=== PATIENT | female | born 1970 | race Caucasian/White ===

== ENCOUNTER → 2018-04-01 | Outpatient (CLI) | payer BC ==
[2018-04-01 19:04] LABS: BASO # 0.1 10^3/uL (0.0-0.2); BASO % 1.1 % (0.0-1.0); EOS # 0.6 10^3/uL (0.0-0.50); EOS % 5.2 % (0.0-3.0); HEMATOCRIT 45.9 % (36.0-47.0); HEMOGLOBIN 15.3 g/dl (12.0-15.5); IMMATURE GRANULOCYTE % 0.5 % (0-3.0); LYMPH # 2.4 10^3/uL (1.5-4.5); LYMPH % 20.6 % (24.0-44.0); MEAN CORPUSCULAR HEMOGLOBIN 30.8 pg (27.0-33.0); MEAN CORPUSCULAR HGB CONC 33.3 g/dl (32.0-36.5); MEAN CORPUSCULAR VOLUME 92.4 fl (80.0-96.0); MONO % 8.8 % (0.0-5.0); NEUTROPHILS # 7.3 10^3/uL (1.8-7.7); NEUTROPHILS % 63.8 % (36.0-66.0); PLATELET COUNT, AUTOMATED 257 10^3/uL (150-450); RED BLOOD COUNT 4.97 10^6/uL (4.00-5.40); RED CELL DISTRIBUTION WIDTH 14.1 % (11.5-14.5); WHITE BLOOD COUNT 11.5 10^3/uL (4.0-10.0)
[2018-04-01 19:33] LABS: ALBUMIN 3.6 GM/DL (3.2-5.2); ALBUMIN/GLOBULIN RATIO 1.03 (1.00-1.93); ALKALINE PHOSPHATASE 126 U/L (45-117); ALT/SGPT 17 U/L (12-78); ANION GAP 6 MEQ/L (8-16); AST/SGOT 13 U/L (7-37); BILIRUBIN,TOTAL 0.4 MG/DL (0.2-1.0); BLOOD UREA NITROGEN 9 MG/DL (7-18); CALCIUM LEVEL 8.4 MG/DL (8.5-10.1); CARBON DIOXIDE LEVEL 28 MEQ/L (21-32); CHLORIDE LEVEL 105 MEQ/L (98-107); CREATININE FOR GFR 0.92 MG/DL (0.55-1.30); FREE T4 0.96 NG/DL (0.76-1.46); GLOMERULAR FILTRATION RATE > 60.0 (>58); GLUCOSE, FASTING 84 MG/DL (70-100); POTASSIUM SERUM 4.3 MEQ/L (3.5-5.1); SODIUM LEVEL 139 MEQ/L (136-145); TOTAL PROTEIN 7.1 GM/DL (6.4-8.2)
== END ==
LOC: M WUC 09:54
DX: H53.8 Other visual disturbances (principal)
CPT/HCPCS: 84443

== ENCOUNTER → 2018-04-13 | Outpatient (CLI) | payer BC ==
[~2018-04-13] MED LIST: PROHANCE 279.3MG/ML 5ML VIAL (A9576) As Ordered
== END ==
LOC: M RAD 06:27
DX: H53.2 Diplopia (principal)
CPT/HCPCS: A9576

== ENCOUNTER 2019-08-31 18:40 | Emergency (ER) | payer BC, OTHER ==
[~2019-08-31] VITALS: Ht 157.5 cm; Wt 55.5 kg
[2019-08-31 19:30] LABS: BASO # 0.1 10^3/uL (0.0-0.2); BASO % 0.8 % (0.0-1.0); EOS # 0.4 10^3/uL (0.0-0.5); EOS % 2.3 % (0.0-3.0); HEMATOCRIT 45.5 % (36.0-47.0); LYMPH % 25.5 % (24.0-44.0); MEAN CORPUSCULAR HEMOGLOBIN 29.2 pg (27.0-33.0); MEAN CORPUSCULAR VOLUME 88.7 fl (80.0-96.0); MONO # 1.4 10^3/uL (0.0-0.8); NEUTROPHILS # 9.6 10^3/uL (1.5-8.5); PLATELET COUNT, AUTOMATED 299 10^3/uL (150-450); RED BLOOD COUNT 5.13 10^6/uL (4.00-5.40); WHITE BLOOD COUNT 15.5 10^3/uL (4.0-10.0)
[2019-08-31] MEDS ORDERED: ONDANSETRON 4MG/2ML VIAL (J2405) IV ONE (19:30)
[2019-08-31] MEDS ORDERED: ISOVUE-370 76% 100ML VIAL (Q9967) As Ordered ONE (19:33)
[2019-08-31 19:58] LABS: ALBUMIN 3.6 GM/DL (3.2-5.2); BILIRUBIN,DIRECT 0.1 MG/DL (0.0-0.2); BILIRUBIN,TOTAL 0.4 MG/DL (0.2-1.0); TOTAL PROTEIN 7.7 GM/DL (6.4-8.2)
--- NOTE | 2019-08-31 20:02 | REPVR ---
PROCEDURE INFORMATION: Exam: CT Abdomen And Pelvis With Contrast Exam date and time: 08/31/2019 7:34 PM Clinical history: 49 years old, female; Abdominal pain; Generalized; Additional info: Abd pain/diarrhea TECHNIQUE: Imaging protocol: Computed tomography of the abdomen and pelvis with intravenous contrast. Radiation optimization: All CT scans at this facility use at least one of these dose optimization techniques: automated exposure control; mA and/or kV adjustment per patient size (includes targeted exams where dose is matched to clinical indication); or iterative reconstruction. Contrast material: ISOVUE 370; Contrast volume: 100 ml; Contrast route: IV; COMPARISON: No relevant prior studies available. FINDINGS: Liver: There is a diffuse decrease in hepatic parenchymal density, consistent with fatty infiltration. Gallbladder and bile ducts: Normal. No calcified stones. No ductal dilation. Pancreas: Normal. No ductal dilation. Spleen: Normal. No splenomegaly. Adrenals: Normal. No mass. Kidneys and ureters: Left renal cyst measures 1.4 cm. Punctate nonobstructive calculus left kidney demonstrated. Stomach and bowel: Boggy appearance of the gastric antrum indicating presence of gastritis. Appendix: Status post appendectomy. Intraperitoneal space: Unremarkable. No free air. No significant fluid collection. Vasculature: Unremarkable. No abdominal aortic aneurysm. Lymph nodes: Unremarkable. No enlarged lymph nodes. Bladder: Unremarkable as visualized. Reproductive: Unremarkable as visualized. Bones/joints: Mild central spinal stenosis at L4-5. Soft tissues: Unremarkable. IMPRESSION: 1. There is a diffuse decrease in hepatic parenchymal density, consistent with fatty infiltration. 2. Boggy appearance of the gastric antrum indicating presence of gastritis. 3. Small nonobstructive calculus left kidney. Small left renal cyst. 4. No significant fluid accumulation demonstrated in the colon. Electronically signed by: Narciso Ley On 08/31/2019 20:01:59 PM
[2019-08-31] MEDS ORDERED: PANTOPRAZOLE 40MG INJ (PROTONIX) (C9113) IV ONE (20:15)
[2019-08-31] MEDS ORDERED: PANT40TA3 PO (21:31)
[2019-08-31] MEDS ORDERED: CARA1TAB6 PO (21:31)
[2019-08-31 21:37] VITALS: BP 114/76
== END 2019-08-31 21:44 | disposition home or self-care (01) ==
LOC: M ED 18:40
DX: K29.00 Acute gastritis without bleeding (principal); Z87.442 Personal history of urinary calculi; F17.210 Nicotine dependence, cigarettes, uncomplicated
CPT/HCPCS: 74177; 80047; 80076; 81001; 83690; 85025; 87088; 87186; 96374; 96375; 99284; C9113; J2405; Q9967

== ENCOUNTER → 2019-09-03 | Outpatient (REF) | payer OTHER ==
[~2019-09-03] MED LIST changes: +CARA1TAB6 PO; +PANT40TA3 PO; -PROHANCE 279.3MG/ML 5ML VIAL (A9576) As Ordered
== END ==
LOC: M LAB REF 12:46
PROVIDERS: ATTEND Physician Assistant
DX: R19.7 Diarrhea, unspecified (principal)

== ENCOUNTER → 2021-03-17 | Outpatient (CLI) | payer OTHER ==
[~2021-03-17] MED LIST changes: +PANT40TA29 PO; -PANT40TA3 PO
[2021-03-17 13:37] LABS: BASO # 0.1 10^3/uL (0.0-0.2); BASO % 1.1 % (0.0-1.0); EOS # 0.2 10^3/uL (0.0-0.5); EOS % 2.4 % (0.0-3.0); HEMATOCRIT 47.1 % (36.0-47.0); HEMOGLOBIN 15.4 g/dl (12.0-15.5); LYMPH # 2.9 10^3/uL (1.5-5.0); LYMPH % 44.4 % (24.0-44.0); MEAN CORPUSCULAR HEMOGLOBIN 29.4 pg (27.0-33.0); MEAN CORPUSCULAR HGB CONC 32.7 g/dl (32.0-36.5); MEAN CORPUSCULAR VOLUME 90.1 fl (80.0-96.0); MONO % 15.3 % (2.0-8.0); NEUTROPHILS # 2.4 10^3/uL (1.5-8.5); NEUTROPHILS % 36.6 % (36.0-66.0); PLATELET COUNT, AUTOMATED 241 10^3/uL (150-450); RED BLOOD COUNT 5.23 10^6/uL (4.00-5.40); WHITE BLOOD COUNT 6.6 10^3/uL (4.0-10.0)
[2021-03-17 14:05] LABS: ERYTHROCYTE SEDIMENTATION RATE 7 mm/hr (0-30)
[2021-03-17 14:14] LABS: ALBUMIN 3.7 GM/DL (3.2-5.2); ALT/SGPT 18 U/L (12-78); BILIRUBIN,TOTAL 0.6 MG/DL (0.2-1.0); BLOOD UREA NITROGEN 11 MG/DL (7-18); CARBON DIOXIDE LEVEL 27 MEQ/L (21-32); CHLORIDE LEVEL 107 MEQ/L (98-107); CREATININE FOR GFR 0.85 MG/DL (0.55-1.30); FOLATE 14.1 NG/ML; GLOMERULAR FILTRATION RATE > 60.0 (>51); GLUCOSE, FASTING 101 MG/DL (70-100); POTASSIUM SERUM 4.1 MEQ/L (3.5-5.1); RHEUMATOID FACTOR QUANT < 10.0 IU/ML (<15.0); SODIUM LEVEL 141 MEQ/L (136-145); TOTAL 25(OH) VITAMIN D 60.7 NG/ML (30.0-100.0); TOTAL PROTEIN 7.5 GM/DL (6.4-8.2)
[2021-03-17 14:26] LABS: HEMOGLOBIN A1c 5.4 %
[2021-03-17 14:53] LABS: VITAMIN B12 LEVEL 432 PG/ML
== END ==
LOC: M PLALAB 11:25
PROVIDERS: ATTEND Psychiatry & Neurology Neurology
DX: G35 Multiple sclerosis (principal); E11.40 Type 2 diabetes mellitus with diabetic neuropathy, unspecified; E07.9 Disorder of thyroid, unspecified; E55.9 Vitamin D deficiency, unspecified; A69.20 Lyme disease, unspecified; G36.0 Neuromyelitis optica [Devic]

== ENCOUNTER → 2021-09-28 | Outpatient (CLI) | payer OTHER ==
[2021-09-28 14:03] LABS: BASO # 0.1 10^3/uL (0.0-0.2); BASO % 0.9 % (0.0-1.0); EOS # 0.5 10^3/uL (0.0-0.5); EOS % 5.9 % (0.0-3.0); HEMATOCRIT 43.8 % (36.0-47.0); HEMOGLOBIN 14.5 g/dl (12.0-15.5); LYMPH # 2.8 10^3/uL (1.5-5.0); LYMPH % 30.6 % (24.0-44.0); MEAN CORPUSCULAR HEMOGLOBIN 29.4 pg (27.0-33.0); MEAN CORPUSCULAR HGB CONC 33.1 g/dl (32.0-36.5); MEAN CORPUSCULAR VOLUME 88.8 fl (80.0-96.0); MONO # 0.9 10^3/uL (0.0-0.8); NEUTROPHILS # 4.7 10^3/uL (1.5-8.5); NEUTROPHILS % 52.3 % (36.0-66.0); PLATELET COUNT, AUTOMATED 249 10^3/uL (150-450); RED BLOOD COUNT 4.93 10^6/uL (4.00-5.40)
[2021-09-28 14:53] LABS: INR 0.93; PROTHROMBIN TIME 12.9 SECONDS (12.7-14.5)
[2021-09-28 14:54] LABS: PARTIAL THROMBOPLASTIN TIME 27.5 SECONDS (25.9-37.0)
[2021-09-28 16:15] LABS: ALBUMIN 3.8 GM/DL (3.2-5.2); ALT/SGPT 21 U/L (12-78); BILIRUBIN,TOTAL 0.5 MG/DL (0.2-1.0); BLOOD UREA NITROGEN 11 MG/DL (7-18); CALCIUM LEVEL 9.2 MG/DL (8.5-10.1); CARBON DIOXIDE LEVEL 26 MEQ/L (21-32); CHLORIDE LEVEL 107 MEQ/L (98-107); CREATININE FOR GFR 0.78 MG/DL (0.55-1.30); GLOMERULAR FILTRATION RATE > 60.0 (>51); GLUCOSE, FASTING 83 MG/DL (70-100); POTASSIUM SERUM 4.1 MEQ/L (3.5-5.1); SODIUM LEVEL 139 MEQ/L (136-145); TOTAL PROTEIN 7.6 GM/DL (6.4-8.2)
[2021-09-28 16:32] LABS: HEPATITIS B SURFACE ANTIGEN NEGATIVE (NEGATIVE)
[2021-09-28 16:59] LABS: HEPATITIS B CORE ANTIBODY IGM NEGATIVE (NEGATIVE); HEPATITIS C VIRUS ABY INDEX 0.2 INDEX (<0.8)
[2021-09-28 19:16] LABS: IMMUNOGLOBULIN G 1150 MG/DL (681-1648)
== END ==
LOC: M LAB 12:38
DX: G35 Multiple sclerosis (principal)

== ENCOUNTER → 2021-12-02 | Outpatient (CLI) | payer OTHER | LOC: M PLALAB 15:32 | PROVIDERS: ATTEND Psychiatry & Neurology Neurology | DX: G35 Multiple sclerosis (principal) ==

== ENCOUNTER 2022-07-28 08:08 | Outpatient (CLI) | payer OTHER ==
[2022-07-28] VITALS (9 sets, daily range): BP systolic 125–141; BP diastolic 71–88
[~2022-07-28] VITALS: Ht 157.5 cm; Wt 56.8 kg
[~2022-07-28 08:08] MED LIST changes: +ACETAMINOPHEN TAB 650MG DOSE (2X325MG) PO ONE; +OCRELIZUMAB 600 MG in NS 500 ML IV ONE; +diphenhydrAMINE 25MG CAP PO ONE; +methylPREDNISolone 125MG 2ML VIAL IV ONE
[2022-07-28] MEDS ORDERED: NOXI1TAB PO (08:31)
[2022-07-28] MEDS ORDERED: VITA500045 PO (08:31)
[2022-07-28] MEDS ORDERED: diphenhydrAMINE 50MG/ML VIAL (J1200) IV ONE (10:05)
== END 2022-07-28 14:45 | disposition home or self-care (01) ==
LOC: M INFU 08:08
PROVIDERS: ATTEND Psychiatry & Neurology Neurology
DX: G35 Multiple sclerosis (principal)
CPT/HCPCS: 96365; 96366; 96375; J1200; J2350; J2930

== ENCOUNTER 2023-01-26 08:11 | Outpatient (CLI) | payer OTHER ==
[~2023-01-26] VITALS: Ht 157.5 cm; Wt 56.8 kg
[2023-01-26] VITALS (8 sets, daily range): BP systolic 112–148; BP diastolic 68–97
[~2023-01-26 08:11] MED LIST changes: +NOXI1TAB PO; +VITA500045 PO
[2023-01-26] MEDS ORDERED: diphenhydrAMINE 50MG/ML VIAL IV PRN (08:50)
== END 2023-01-26 14:00 | disposition home or self-care (01) ==
LOC: M INFU 08:11
PROVIDERS: ATTEND Psychiatry & Neurology Neurology
DX: G35 Multiple sclerosis (principal)
CPT/HCPCS: 96365; 96366; 96375; J1200; J2350; J2930

== ENCOUNTER 2023-07-28 10:45 | Emergency (ER) | payer MEDICARE ==
[~2023-07-28] VITALS: Ht 157.5 cm; Wt 54.1 kg
[~2023-07-28 10:45] MED LIST changes: -ACETAMINOPHEN TAB 650MG DOSE (2X325MG) PO ONE; -OCRE300I IV; -OCRELIZUMAB 600 MG in NS 500 ML IV ONE; -diphenhydrAMINE 25MG CAP PO ONE; -diphenhydrAMINE 50MG/ML VIAL IV STA; -methylPREDNISolone 125MG 2ML VIAL IV ONE
[2023-07-28] MEDS ORDERED: OCRE300I IV (11:07)
[2023-07-28 13:44] VITALS: BP 142/86
[2023-07-28 13:45] VITALS: O2SAT 97
[2023-07-28 13:55] VITALS: TEMP 98.5
== END 2023-07-28 14:00 | disposition home or self-care (01) ==
LOC: M ED 10:45
DX: T80.89XA Other complications following infusion, transfusion and therapeutic injection, initial encounter (principal); G35 Multiple sclerosis; F17.200 Nicotine dependence, unspecified, uncomplicated; Z79.899 Other long term (current) drug therapy

== ENCOUNTER → 2023-07-28 | Outpatient (CLI) | payer MEDICARE, OTHER, SELFPAY ==
[~2023-07-28] VITALS: Ht 157.5 cm; Wt 54.0 kg
[~2023-07-28] MED LIST changes: +OCRE300I IV; +diphenhydrAMINE 50MG/ML VIAL IV STA
[2023-07-28 08:28] VITALS: BP 130/78; TEMP 97.4; O2SAT 98
[2023-07-28 09:00] VITALS: BP 133/75; TEMP 97.3; O2SAT 98
[2023-07-28 09:35] VITALS: BP 144/88; TEMP 97.4; O2SAT 96
[2023-07-28 10:40] VITALS: BP 142/82; TEMP 97.5; O2SAT 95
== END ==
LOC: M INFU 07:42
PROVIDERS: ATTEND Psychiatry & Neurology Neurology
DX: G35 Multiple sclerosis (principal); T80.89XA Other complications following infusion, transfusion and therapeutic injection, initial encounter; F17.200 Nicotine dependence, unspecified, uncomplicated; Z79.899 Other long term (current) drug therapy
CPT/HCPCS: 96365; 96366; 96375; 99284; J1200; J2350; J2930

== ENCOUNTER 2024-04-02 07:10 | Outpatient (CLI) | payer MEDICAID, MEDICARE ==
[~2024-04-02] VITALS: Ht 157.5 cm; Wt 50.0 kg
[2024-04-02] VITALS (7 sets, daily range): BP systolic 118–160; BP diastolic 72–91; O2SAT 96–100
[~2024-04-02 07:10] MED LIST changes: +OCRE300I IV
[2024-04-02] MEDS: ACETAMINOPHEN TAB 650MG DOSE (2X325MG) PO ONE (07:32)
[2024-04-02] MEDS: diphenhydrAMINE 25MG CAP PO ONE (07:32)
[2024-04-02] MEDS: methylPREDNISolone 125MG 2ML VIAL IV ONE (07:32)
[2024-04-02] MEDS: OCRELIZUMAB 600 MG in NS 500 ML IV ONE (08:12)
== END 2024-04-02 09:30 ==
LOC: M INFU 07:10
PROVIDERS: ATTEND Psychiatry & Neurology Neurology
DX: G35 Multiple sclerosis (principal)
CPT/HCPCS: 96375; 96413; 96415; J2350; J2919